=== PATIENT | female | born 2000 | race Caucasian/White ===

== ENCOUNTER 2024-05-11 17:12 | Emergency (ER) | payer MEDICAID ==
[~2024-05-11] VITALS: Ht 149.9 cm; Wt 63.2 kg
--- NOTE | 2024-05-11 18:52 | ED.PDOC ---
Eye-HPI HPI Comments This is a 24-year-old female presents to the ED chief complaint left ear pain times 24 hours. States she has been sick for the past 3 days flu-like symptoms with cough fever chills and bilateral ear pain. States woke up with left-sided ear pain and bleeding. Denies known trauma. Denies change in hearing. 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 History Family History Family History: Reviewed,noncontributory to illness Constitutional: reports: fever; denies: chills, diaphoresis, fatigue, malaise, sweats, weakness, others EENTM: reports: ear bleeding, ear discharge, ear pain, nasal discharge; denies: blurred vision, double vision, ear drainage, ear ringing, eye pain, eye redness, hearing loss, mouth pain, mouth swelling, nose bleeding, nose congestion, nose pain, photophobia, tearing, throat pain, throat swelling, voice changes, others Respiratory: reports: cough; denies: hemoptysis, orthopnea, SOB at rest, shortness of breath, SOB with excertion, stridor, wheezing, others Cardiovascular: denies: chest pain, dizzy spells, diaphoresis, Dyspnea on exertion, edema, irregular heart beat, left arm pain, lightheadedness, palpitations, PND, syncope, others Gastrointestinal: denies: abdomen distended, abdominal pain, blood streaked bowels, constipated, diarrhea, dysphagia, difficulty swallowing, hematemesis, melena, nausea, poor appetite, poor fluid intake, rectal bleeding, rectal pain, vomiting, others Genitourinary: denies: abnormal vagina bleeding, burning, dyspareunia, dysuria, flank pain, frequency, hematuria, incontinence, pain, , vagina discharge, urgency, others Neurological: denies: dizziness, fainting, headache, left sided numbness, left sided weakness, numbness, paresthesia, pre-existing deficit, right sided numbness, right sided weakness, seizure, speech problems, tingling, tremors, weakness, others Musculoskeletal: denies: back pain, gout, joint pain, joint swelling, muscle pain, muscle stiffness, neck pain, others Integumetry: denies: bruises, change in color, change in hair/nails, dryness, laceration, lesions, lumps, rash, wounds, others Allergic/Immunocompromised: denies: Difficulty Healing, Frequent Infections, Hives, Itching, others Hematologic/Lymphatic: denies: anemia, blood clots, easy bleeding, easy bruising, swollen glands, others Endocrine: denies: excessive hunger, excessive sweating, excessive thirst, excessive urination, flushing, intolerance to cold, intolerance to heat, unexplained weight gain, unexplained weight loss, others Psychiatric: denies: anxiety, bipolar disorder, depression, hopeless, panic disorder, schizophrenia, sleepless, suicidal, others Physical Exam General Appearance: No Apparent Distress, Normal HEENT: Normal ENT Inspection, Pharynx Normal, Other (Left TM intact noted bulging and erythema with serosanguineous drainage. No ear canal edema or erythema no foreign body or wax. Right TM intact without erythema or bulging no noted drainage.) Neck: Full Range of Motion, Non-Tender, Normal, Normal Inspection Respiratory: Chest Non-Tender, Lungs Clear, No Accessory Muscle Use, No Respiratory Distress, Normal Breath Sounds Cardiovascular: No Edema, No JVD, No Murmur, No Gallop, Normal Peripheral Pulses, Regular Rate/Rhythm Breast Exam: Deferred Gastrointestinal: No Organomegaly, Non Tender, No Pulsatile Mass, Normal Bowel Sounds, Soft Genitalia: Deferred Pelvic: Deferred Rectal: Deferred Extremities: No calf tenderness, Normal capillary refill, Normal inspection, Normal range of motion, Non-tender, No pedal edema Musculoskeletal : Apperance: Normal Neurologic: Alert, 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 Was a procedure done?: No EENT DIFF Eye: N/A Ear: Cerumen Impaction, Foreign Body, Otitis Externa, Barotrauma, Otitis Media, Perforation X-Ray, Labs, Meds, VS Vital Signs Date Time Temp Pulse Resp B/P (MAP) Pulse Ox O2 Delivery O2 Flow Rate FiO2 05/11/24 19:01 98.0 78 18 117/80 (92) 96 05/11/24 19:00 78 18 96 Room Air 05/11/24 19:00 98.0 78 18 117/80 (92) 96 98.0 Current Medications Medications (Trade) Dose Ordered Sig/Adams Route Start Time Stop Time Status Last Admin Dexamethasone Sodium Phosphate (Decadron Injection) 10 mg ONCE ONCE IM 05/11/24 19:00 05/11/24 19:01 DC 05/11/24 19:08 X-Ray, Labs, Meds, VS Comment Patient given Decadron 10 mg IM for the pain and swelling. Script cefdinir advised to complete entire course. Follow up with her PCP in 2-3 days as necessary for re-evaluation of the ear if symptoms persist [id number] Tylenol or Motrin as needed for pain or fever per labeled dosing instructions ER return precautions given patient indicated understanding and agrees with discharge plan of care. Time of 1ST Reevaluation: 19:29 Reevaluation 1ST: Improved Patient Education/Counseling: Diagnosis, Treatment, Prognosis, Need For Follow Up Family Education/Counseling: No Family Present Departure 1 Departure Time of Disposition: 18:53 Impression: Primary Impression: Otitis media Qualified Codes: H66.012 - Acute suppurative otitis media with spontaneous rupture of ear drum, left ear Disposition: 01 HOME / SELF CARE / HOMELESS Condition: Stable e-Prescriptions Cefdinir (Cefdinir) 300 Mg Cap 1 CAP PO BID for 7 Days, #14 CAP Prov: ESPERANZA RICHARDS 05/11/24 Discharged With: Self Critical Care Note Critical Care Time?: No Stability Stability form required: ESPERANZA Valencia May 11, 2024 18:52
[2024-05-11] MEDS ORDERED: CEFD300C2 PO (18:55)
[2024-05-11 19:00] VITALS: TEMP 98
[2024-05-11 19:01] VITALS: BP 117/80; PULSE 78; RESP 18; O2SAT 96
[2024-05-11] MEDS: DexAMETHasone SOD PHOS 10MG/1ML VIAL INJ IM ONE (19:08)
== END 2024-05-11 19:17 | disposition home or self-care (01) ==
LOC: ER 17:12
DX: H66.92 Otitis media, unspecified, left ear (principal); Z79.899 Other long term (current) drug therapy
CPT/HCPCS: 96372; 99283; J1100